=== PATIENT | male | born 1975 | race African-American/Black ===

== ENCOUNTER 2021-06-09 | Emergency (ER) | payer OTHER ==
[2021-06-09 00:08] VITALS: BP 139/78; PULSE 88; TEMP 98.8; BMI 32.8
[2021-06-09] MEDS ORDERED: KETOROLAC TROMETHAMINE 30 MG/1 ML VIAL IM ONE (00:21)
[2021-06-09] MEDS ORDERED: ACETAMINOPHEN 500 MG TABLET (FP) PO ONE (00:21)
[2021-06-09] MEDS ORDERED: KETOROLAC TROMETHAMINE 30 MG/1 ML VIAL ONE (00:28)
[2021-06-09] MEDS ORDERED: ACETAMINOPHEN 500 MG TABLET (FP) ONE (00:28)
== END 2021-06-09 00:34 | disposition home or self-care (01) ==
LOC: FER
PROC: 3E0233Z Introduction of Anti-inflammatory into Muscle, Percutaneous Approach (ICD-10-PCS; principal; 2021-06-09)
DX: M79.10 Myalgia, unspecified site (principal); V89.2XXA Person injured in unspecified motor-vehicle accident, traffic, initial encounter; Y92.9 Unspecified place or not applicable
CPT/HCPCS: 99283-25